=== PATIENT | female | born 2000 | race Caucasian/White ===

== ENCOUNTER 2023-07-11 10:57 | Inpatient (IN) | payer MEDICAID ==
[2023-07-11] VITALS (7 sets, daily range): BP systolic 105–137; BP diastolic 65–85; PULSE 51–94; TEMP 97.8–98.3
[~2023-07-11] VITALS: Ht 165.1 cm; Wt 93.9 kg
[2023-07-11] MEDS ORDERED: IBU800 M1 PO (11:49)
[2023-07-11] MEDS ORDERED: [UNRECOGNIZED DRUG - SUPPLY] (11:50)
[2023-07-11] MEDS ORDERED: KEPPRA 500MG500 MG PO (12:01)
--- NOTE | 2023-07-11 12:08 | NUR ---
PATIENT ARRIVED TO [facility] AT APPROX 1115. PATIENT WAS ABLE TO AMBULATE TO BED.
[2023-07-11] MEDS ORDERED: LR 1,000 ML IV SCH (12:30)
[2023-07-11] MEDS ORDERED: diphenhydrAMINE 50 MG/ML 1 ML VIAL IV PRN (12:30)
[2023-07-11] MEDS ORDERED: HYDROmorphone 0.5 MG/0.5 ML SYRINGE IV PRN (12:30)
[2023-07-11] MEDS ORDERED: Ondansetron 4 MG/2 ML VIAL IV PRN (12:30)
--- NOTE | 2023-07-11 12:31 | NUR ---
PATIENT RESTING IN BED. ADMISSION ASSESSMENT COMPLETE. NO SKIN ISSUES NOTED. PATIENT WILL BREASTFEED USING A BREAST PUMP. PATIENT STATES ABD PAIN IS AN 8/10. PATIENT IS ALERT AND ORIENTED. THIS NURSE ORIENTED PATIENT TO ROOM, ALL QUESTIONS ANSWERED. PATIENT IS REQUESTING PAIN MEDICATION. DR CHADWICK NOTIFIED. SEE NEW ORDERS.
[2023-07-11] MEDS ORDERED: Albuterol 0.042% Neb Soln 1.25 MG/3 ML UD IH PRN (13:45)
--- NOTE | 2023-07-11 17:34 | NUR ---
PATIENT RESTING IN BED. PAIN HAS BEEN MANAGED WITH DILAUDID PER MAR THROUGHOUT SHIFT. PATIENT IS C/O MILD ITCHINESS. THIS NURSE EDUCATED PATIENT ON SIDE EFFECTS OF THE PAIN MEDICATION AND WHEN BENADRYL CAN BE ADMINISTERED. PATIENT VERBALIZED UNDERSTANDING. VSS. PATIENT DENIES NEEDS OR CONCERNS AT THIS TIME.
--- NOTE | 2023-07-11 20:00 | NUR ---
PT A&O LAYING IN BED. VSS ON ROOM AIR. DENYING N/V & STATES ABD PAIN IS 8/10, GIVEN PRN PER MAR. LR INFUSING TO RIGHT HAND @ 125MLS/HR. CALL LIGHT IN REACH & DENYING FURTHER NEEDS.
[2023-07-11] MEDS ORDERED: levETIRAcetam 500 MG TAB PO SCH (21:00)
[2023-07-12] VITALS (13 sets, daily range): BP systolic 94–137; BP diastolic 58–71; PULSE 62–85; TEMP 97.3–99.9
[2023-07-12 06:32] LABS: BASO % 0.2 % (0.0-2.0); EOS % 0.5 % (0.0-4.0); GRAN # 5.9 K/mm3 (1.4-6.5); GRAN % 73.2 % (42.2-75.2); HEMATOCRIT 37.9 % (35.0-45.0); HEMOGLOBIN 12.3 g/dl (12.0-15.0); LYMPH # 1.6 K/mm3 (1.2-3.4); LYMPH % 20.2 % (20.0-51.0); MEAN CELL VOLUME 89 fl (80.0-95.0); MEAN CORPUSCULAR HEMOGLOBIN 29 pg (26-32); MEAN CORPUSCULAR HGB CONC 33 g/dl (33.0-37.0); MEAN PLATELET VOLUME 11.4 fl (7.4-10.4); MONO # 0.5 K/mm3 (0.1-0.6); MONO % 5.7 % (1.7-9.3); PLATELET COUNT 293 K/mm3 (130-400); RED BLOOD COUNT 4.25 M/mm3 (4.10-5.30); REDCELL DISTRIBUTION WIDTH-CV 14.2 % (11.5-14.5)
[2023-07-12 06:56] LABS: ALBUMIN 2.9 gm/dL (3.5-5.0); BILIRUBIN,TOTAL 1.3 mg/dL (0.2-1.2); CREATININE, serum 0.82 mg/dL (0.57-1.11); POTASSIUM 3.4 mmol/L (3.5-4.5); TOTAL PROTEIN 6.3 gm/dL (6.2-8.1)
--- NOTE | 2023-07-12 08:20 | NUR ---
Patient resting in bed. Pain remains 8/10. Pain medications as ordered. Patient skin remains itchy. lotion provided. IVF as ordered. Will monitor.
--- NOTE | 2023-07-12 10:38 | NUR ---
supervisor hand workers met with pt to complete discharge planning. She reports to live in [place] with her fiance and . She reports her partner as Jose [phone]. Pt reports to see Dr. Mattson and obtains medications at [facility] with no difficulties. She is independent with ADLS and uses no DME. She did not have a DPOA-HC and wanted to complete one listing Jose and her mother, Tabitha. ANABELLE Soria at [facility]. Copies and original provided. Copy in chart. Discharge Plan: Home
--- NOTE | 2023-07-12 11:03 | NUR ---
Initial visit; Patient thanked Steel Analyst though declined Spiritual Care. Steel Analyst wished patient well.
--- NOTE | 2023-07-12 11:10 | NUR ---
Mary with services in see patient, I discussed with her the patient status of bottle feeding her infant and she is trying to wean herself off breast feeding. Hand out was given to patient.
--- NOTE | 2023-07-12 11:45 | NUR ---
Called . Patient status update given. Discussed with him Patient vitals signs. Made him aware of Blood pressure and temp. Orders obtained and placed
[2023-07-12] MEDS ORDERED: Ketorolac 15 MG/ML VIAL IV PRN (12:00)
--- NOTE | 2023-07-12 12:15 | NUR ---
Patient resting in bed. Denies chills or night sweats. Pain is elevated to 9/10. Toradol given, reviewed with her the MRI order. Reivewed importance of strict I&O. Urine collection hat placed bathroom. She remains NPO for MRI. . Mouth swabs and chapstick provided
[2023-07-12] MEDS ORDERED: PROAIR HFA0.09 MG/AC IH (12:50)
[2023-07-12] MEDS ORDERED: ALBUTEROL SULFAT3 M3 IH (12:51)
--- NOTE | 2023-07-12 13:21 | NUR ---
Spoke with MRI, plans for MRCP early this afternoon. Patient remains NPO. Will avoid narcotic pain medication until completed per the MRI staff request, to avoid patient being too sleepy to complete exam
--- NOTE | 2023-07-12 13:42 | NUR ---
Patient to MRI with MRI staff, Will await her return.
--- NOTE | 2023-07-12 15:01 | NUR ---
Patient suicial questionare completed. Upon discussing with patient in 2016 she was hospitalized, but reports NO to active or recent thoughts,plans, or ideas. She denies needing any help at this time.
--- NOTE | 2023-07-12 15:11 | NUR ---
LC Visit: Staff report pt is trying to suppress her milk supply but has also been pumping due to recent "engorgement" feedings. Pt not collecting much. provided pt with how to suppress milk production, however pt is very tired at this time. Pt advised to review when she is more awake. reports to staff nurse RE: handout and pt being very sleepy.
--- NOTE | 2023-07-12 15:12 | NUR ---
Patient sitting in bed. Feeling a little better pain rating 6/10. Tolerating clears, [place] given PRN. Called and made him aware of the MRCP resulting. Am labs ordered, NPO at oooo.
--- NOTE | 2023-07-12 18:40 | NUR ---
Patient resting in bed. Pain did increase after certain clear liquids and caused her nausea, so she is avoiding. She is tolerating popcicles. Patient voided, josé miguel dark output. She has been facetiming with her . Bedside report to Qian who will resume cares
--- NOTE | 2023-07-12 19:55 | NUR ---
PT A&O X4 LAYING IN BED. VSS. DENYING N/V. STATES ABD PAIN IS 8/10, GIVEN PRN DILAUDID PER MAR. & GAVE PRN BENADRYL FOR ITCHING. ANTIBIOTIC INFUSING TO RIGHT HAND VIA PUMP. PT TOLERATED POPSICLE OK. CALL LIGHT IN REACH & DENYING FURTHER NEEDS.
--- NOTE | 2023-07-12 22:06 | NUR ---
PT RESTEING IN BED WITH EVEN & UNLABORED RESP. CALL LIGHT IN REACH.
[2023-07-13] VITALS (11 sets, daily range): BP systolic 94–118; BP diastolic 60–72; PULSE 57–97; TEMP 98.2–99.5
--- NOTE | 2023-07-13 00:05 | NUR ---
PT AMBULATED TO RESTROOM & STATED THAT MOVEMENT MADE HER ABD PAIN WORSE RATINGIT 9/10, GIVEN PRN PER SEP. PT BACK IN BED WITH CALL LIGHT IN REACH.
--- NOTE | 2023-07-13 06:28 | NUR ---
PT RESTING IN BED WITH EVEN & UNLABORED RESP. CALL LIGHTS IN REACH
[2023-07-13 08:38] LABS: ALBUMIN 2.4 gm/dL (3.5-5.0); BILIRUBIN,TOTAL 0.7 mg/dL (0.2-1.2); CALCIUM 8.8 mg/dL (8.4-10.2); CREATININE, serum 0.7 mg/dL (0.57-1.11); POTASSIUM 3.4 mmol/L (3.5-4.5); TOTAL PROTEIN 5.5 gm/dL (6.2-8.1)
[2023-07-13 09:18] LABS: BASO % 0.4 % (0.0-2.0); EOS # 0.3 K/mm3 (0.0-0.7); GRAN # 4.4 K/mm3 (1.4-6.5); GRAN % 61.3 % (42.2-75.2); HEMOGLOBIN 10.8 g/dl (12.0-15.0); LYMPH % 27.9 % (20.0-51.0); MEAN CELL VOLUME 91 fl (80.0-95.0); MEAN CORPUSCULAR HEMOGLOBIN 29 pg (26-32); MEAN CORPUSCULAR HGB CONC 32 g/dl (33.0-37.0); MEAN PLATELET VOLUME 11.8 fl (7.4-10.4); MONO # 0.4 K/mm3 (0.1-0.6); MONO % 6.1 % (1.7-9.3); PLATELET COUNT 246 K/mm3 (130-400); RED BLOOD COUNT 3.69 M/mm3 (4.10-5.30); REDCELL DISTRIBUTION WIDTH-CV 13.8 % (11.5-14.5)
[2023-07-13 09:19] LABS: HEMATOCRIT 33.6 % (35.0-45.0)
--- NOTE | 2023-07-13 19:17 | NUR ---
report received from [place]. pt resting in bed watching tv. pt reports 7/10 abd pain and requesting pain meds. prn norco administered per orders. pt also reporting nausea. prn zofran administered per orders. pt did not finish dinner d/t nausea. call light in reach. all needs met at this time.
--- NOTE | 2023-07-13 19:51 | NUR ---
pt reporting increased sharp abdominal pain. pt now rating pain 9/10. prn toradol administered per orders. call light in reach. all needs met at this time.
--- NOTE | 2023-07-13 22:08 | NUR ---
shift assessment complete, see documentation. pt reporting some relief from prn pain medications. ivf continue running to right hand iv without issue. pt resting in bed on the phone with family. call light in reach. all needs met at this time.
[2023-07-14] VITALS (14 sets, daily range): BP systolic 109–125; BP diastolic 56–87; PULSE 53–79; TEMP 97.4–98.8
[2023-07-14] MEDS ORDERED: LR 1,000 ML IV SCH (01:00)
--- NOTE | 2023-07-14 03:21 | NUR ---
pt in tears and reporting 10/10 abd pain. prn toradol administered per orders. call light in reach. all needs met at this time.
[2023-07-14] MEDS ORDERED: Indocyanine Green 12.5 MG in Water For Injection,Sterile 2.5 ML IV SCH (06:00)
[2023-07-14] MEDS ORDERED: fentaNYL 50 MCG/ML 5 ML VIAL ONE (06:25)
[2023-07-14] MEDS ORDERED: Rocuronium 50 MG/5 ML Multi-Dose VIAL ONE (06:25)
[2023-07-14] MEDS ORDERED: Glycopyrrolate 0.2 MG/ML 1 ML VIAL ONE (06:26)
[2023-07-14] MEDS ORDERED: Ketorolac 30 MG/ML VIAL ONE (06:26)
[2023-07-14] MEDS ORDERED: NS 10 ML IV ONE (06:26)
[2023-07-14] MEDS ORDERED: Lidocaine PF 2% (20 MG/ML) 5 ML VIAL ONE (06:26)
[2023-07-14] MEDS ORDERED: Ondansetron 4 MG/2 ML VIAL ONE (06:26)
[2023-07-14] MEDS ORDERED: dexAMETHasone 10 MG/ML VIAL ONE (06:26)
[2023-07-14] MEDS ORDERED: HYDROmorphone 2 MG/1 ML VIAL IV PRN (07:00)
[2023-07-14] MEDS ORDERED: fentaNYL 50 MCG/ML 2 ML VIAL IV PRN (07:00)
[2023-07-14] MEDS ORDERED: droPERidol 2.5 MG/ML 2 ML VIAL IV PRN (07:00)
[2023-07-14] MEDS ORDERED: hydrALAZINE 20 MG/ML 1 ML VIAL IV PRN (07:00)
[2023-07-14] MEDS ORDERED: Promethazine 25 MG/ML 1 ML VIAL IV PRN (07:00)
[2023-07-14] MEDS ORDERED: Ondansetron 4 MG/2 ML VIAL IV PRN (07:00)
[2023-07-14 07:03] LABS: BASO % 0.3 % (0.0-2.0); EOS # 0.4 K/mm3 (0.0-0.7); EOS % 5.6 % (0.0-4.0); GRAN # 4.9 K/mm3 (1.4-6.5); GRAN % 62.1 % (42.2-75.2); LYMPH % 25.8 % (20.0-51.0); MEAN CELL VOLUME 89 fl (80.0-95.0); MEAN CORPUSCULAR HEMOGLOBIN 30 pg (26-32); MEAN CORPUSCULAR HGB CONC 33 g/dl (33.0-37.0); MEAN PLATELET VOLUME 11.8 fl (7.4-10.4); MONO # 0.5 K/mm3 (0.1-0.6); MONO % 5.9 % (1.7-9.3); PLATELET COUNT 260 K/mm3 (130-400); RED BLOOD COUNT 3.73 M/mm3 (4.10-5.30); REDCELL DISTRIBUTION WIDTH-CV 13.4 % (11.5-14.5)
[2023-07-14 07:08] LABS: HEMATOCRIT 33.2 % (35.0-45.0)
[2023-07-14] MEDS ORDERED: Indocyanine Green 25 MG KIT IV ONE (07:10)
[2023-07-14 07:24] LABS: ALBUMIN 2.5 gm/dL (3.5-5.0); BILIRUBIN,TOTAL 0.5 mg/dL (0.2-1.2); CALCIUM 9.1 mg/dL (8.4-10.2); CREATININE, serum 0.71 mg/dL (0.57-1.11); POTASSIUM 3.3 mmol/L (3.5-4.5); TOTAL PROTEIN 5.8 gm/dL (6.2-8.1)
[2023-07-14] MEDS ORDERED: Topical Skin Adhesive 1 EACH (1 ML) TOP ONE (08:10)
[2023-07-14] MEDS ORDERED: Iohexol 350 - 100 ML VIAL BILE DUCT ONE (08:10)
--- NOTE | 2023-07-14 08:16 | NUR ---
PT TO SURGERY WITH CAROLE PER BED AT 0715. CONTACTED [facility] RE: ICG ADMINISTRATION.
[2023-07-14] MEDS ORDERED: NORCO 325 MG-51 TAB PO (09:20)
[2023-07-14] MEDS ORDERED: MOTRIN 600600 MG/TAB PO (09:21)
[2023-07-14] MEDS ORDERED: AMOXICILLIN 8751 TAB PO (09:22)
[2023-07-14] MEDS ORDERED: Amoxicillin/Clavulanate K+ 875/125 MG TAB PO SCH (09:23)
[2023-07-14] MEDS ORDERED: Ibuprofen 600 MG TAB PO PRN (09:30)
--- NOTE | 2023-07-14 11:20 | NUR ---
PT TO ROOM 322 PER BED WITH REPORT FROM [facility] PACU @1000. PT IS A/O X4, LUNGS CTA, BOWEL SOUNDS HYPO. 5 LAP SITES CDI RAND TACKER. IV TO LFA. VSS.
--- NOTE | 2023-07-14 18:18 | NUR ---
REVIEWED DISCHARGE INSTRUCTIONS WITH PT. QUESTIONS SOLICITED AND ANSWERED. PT VERBALIZED UNDERSTANDING. PT WILL EAT DINNER AND WAIT FOR RIDE TO DISCHARGE.
== END 2023-07-14 18:52 | disposition home or self-care (01) | DRG 769 ==
LOC: SURG 10:57
PROVIDERS: ADMIT Surgery
PROC: 8E0W4CZ Robotic Assisted Procedure of Trunk Region, Percutaneous Endoscopic Approach (ICD-10-PCS; 2023-07-14)
PROC: 0FT44ZZ Resection of Gallbladder, Percutaneous Endoscopic Approach (ICD-10-PCS; principal; 2023-07-14 07:30)
DX: O26.63 Liver and biliary tract disorders in the puerperium (principal); K85.10 Biliary acute pancreatitis without necrosis or infection; G40.909 Epilepsy, unspecified, not intractable, without status epilepticus; J45.990 Exercise induced bronchospasm; K80.20 Calculus of gallbladder without cholecystitis without obstruction; O90.89 Other complications of the puerperium, not elsewhere classified; Z23 Encounter for immunization; Z88.6 Allergy status to analgesic agent
CPT/HCPCS: A9284; J0690; J1100; J1170; J1200; J1885; J2405; J2543; J2704; J3010; J7120; Q9967